=== PATIENT | male | born 1955 | race Two or more races ===

== ENCOUNTER 2025-06-02 15:59 | Inpatient (IN) | payer MEDICARE, OTHER ==
[~2025-06-02] VITALS: Ht 167.6 cm; Wt 69.9 kg
[~2025-06-02 15:59] MED LIST: AMOX1TAB16 PO; CAPE500T15 PO; SULF1TAB48 PO
[2025-06-02 16:33] LABS: PLATELET COUNT (AUTO) 297 K/uL (150-450); RED BLOOD CELL COUNT(AUTO) 3.66 MIL/uL (4.5-6.0); RED CELL DISTRIBUTION WIDTH 16.8 % (11.5-15.0); WHITE BLOOD COUNT (AUTO) 7.7 K/uL (4.3-11.0)
[2025-06-02] MEDS ORDERED: LATA7.5D EACHEYE (17:00)
[2025-06-02] MEDS ORDERED: NETA2.5D RIGHTEYE (17:00)
[2025-06-02] MEDS ORDERED: SENN-261 PO (17:00)
[2025-06-02] MEDS ORDERED: VALP250C3 PO (17:00)
[2025-06-02] MEDS ORDERED: TAMS-12 PO (17:00)
[2025-06-02] MEDS ORDERED: OLAN10TA3 PO (17:00)
[2025-06-02] MEDS ORDERED: LACT1CAP69 PO (17:00)
[2025-06-02] MEDS ORDERED: MULT-213 PO (17:00)
[2025-06-02] MEDS ORDERED: POLY119P3 PO (17:00)
[2025-06-02] MEDS ORDERED: FLUT1BLS11 IH (17:00)
[2025-06-02] MEDS ORDERED: BISA10SU11 RC (17:00)
[2025-06-02] MEDS ORDERED: MAGN400O6 PO (17:00)
[2025-06-02] MEDS ORDERED: NA P133E RC (17:00)
[2025-06-02] MEDS ORDERED: PANT40TA49 PO (17:00)
[2025-06-02] MEDS ORDERED: CLON1TAB12 PO (17:00)
[2025-06-02] MEDS ORDERED: BRIM5DRO11 EACHEYE (17:00)
[2025-06-02] MEDS ORDERED: ALBU18HF2 IH (17:00)
[2025-06-02 17:01] LABS: CALCIUM, SERUM 9.0 mg/dL (8.5-10.1); CREATININE 0.8 mg/dL (0.6-1.3); SODIUM SERUM 135 mmol/L (136-145); UREA NITROGEN, BLOOD 15 mg/dL (7-18)
[2025-06-02 17:06] LABS: ALCOHOL, BLOOD < 3 mg/dL (0-10); ASPARTATE AMINOTRANSFERASE 21 U/L (15-37); TOTAL PROTEIN, SERUM 8.0 g/dL (6.4-8.2)
[2025-06-02] MEDS ORDERED: OLANZAPINE 10 MG VIAL IM ONE (17:18)
[2025-06-02] MEDS: OLANZAPINE 10 MG VIAL IM ONE (17:25)
[2025-06-02 18:01] LABS: APPEARANCE,URINE CLEAR (CLEAR); BLOOD, URINE NEGATIVE Ery/uL (NEGATIVE); LEUKOCYTE ESTERASE ,URINE 1+ (NEGATIVE); NITRITE, URINE NEGATIVE (NEGATIVE); UGLUCOSE NEGATIVE (NEGATIVE)
[2025-06-02 18:21] LABS: AMPHETAMINE, URINE NEGATIVE (NEGATIVE); BARBITURATE, URINE NEGATIVE (NEGATIVE); CANNABINOID, URINE NEGATIVE (NEGATIVE); COCCAINE, URINE NEGATIVE (NEGATIVE); OPIATE, URINE NEGATIVE (NEGATIVE)
[2025-06-02 18:24] LABS: ADD URINE CULTURE YES; SQUAMOUS EPITHELIAL CELL,UR 0-2 /HPF (None Seen)
[2025-06-02 18:51] LABS: BAND % (MANUAL) 3 % (0.0-5.0); EOSINOPHILS % (MANUAL) 5 % (0-4); LYMPHOCYTES % (MANUAL) 33 % (16-48); MONOCYTES % (MANUAL) 6 % (0-11.0); NEUTROPHILS % (MANUAL) 53 (42-76); PLATELET ESTIMATE ADEQUATE
[2025-06-02 19:12] LABS: BENZODIAZEPINE, URINE NEGATIVE (NEGATIVE)
[2025-06-02] MEDS ORDERED: ONDANSETRON HCL/PF 4 MG/2 ML VIAL IVP PRN (19:30)
[2025-06-02] MEDS ORDERED: MAGNESIUM HYDROXIDE 30 ML UDC PO PRN (19:30)
[2025-06-02] MEDS ORDERED: ACETAMINOPHEN 325 MG TABLET PO PRN (19:30)
[2025-06-02] MEDS ORDERED: MAG HYDROX/AL HYDROX/SIMETH 30 ML UDC PO PRN (19:30)
[2025-06-02] MEDS ORDERED: DEXTROSE 50%-WATER 50 ML DISP.SYRIN IV PRN (20:00)
[2025-06-02] MEDS ORDERED: CEFTRIAXONE 1GM BAG (ER ONLY) 50 ML IV ONE (20:15)
[2025-06-02] MEDS: CEFTRIAXONE 1GM BAG (ER ONLY) 1 GM/50 ML PIGGYBACK IV ONE (20:18)
[2025-06-02] MEDS ORDERED: CAPECITABINE 500 MG TABLET PO SCH (20:30)
[2025-06-02] MEDS ORDERED: ALBUTEROL FS 2.5 MG/0.5 ML VIAL.NEB NEB PRN (21:00)
[2025-06-02 21:15] VITALS: BP 143/66; TEMP 97.7; O2SAT 96
[2025-06-02] MEDS: IV NS 0.9% 1,000 ML IV SCH (21:37)
[2025-06-02] MEDS: LATANOPROST EYE DROP 0.005% 2.5 ML BOTTLE EACHEYE SCH (22:00)
[2025-06-02] MEDS: NITROFURANTOIN/MONOHYDRATE MACROCRYSTALS 100 MG CAPSULE PO SCH (22:09)
[2025-06-02] MEDS: SENNOSIDES 8.6 MG TABLET PO SCH (22:10)
[2025-06-02] MEDS: AMOX/CLAVULANATE 875 MG TABLET PO SCH (22:10)
[2025-06-02] MEDS: SULFAMETH/TRIMETH 800/160 MG 1 UDTAB TABLET PO SCH (22:10)
[2025-06-02] MEDS: TAMSULOSIN 0.4 MG CAP.SR.24H PO SCH (22:18)
[2025-06-02] MEDS: VALPROIC ACID 250 MG/5 ML UDC PO SCH (22:18)
[2025-06-02] MEDS: INSULIN REGULAR, HUMAN 100 UNIT/ML 3 ML VIAL SQ PRN (22:51)
[2025-06-02] MEDS: BLOOD SUGAR DIAGNOSTIC 1 EACH STRIP IN SCH (22:51)
[2025-06-03 06:39] LABS: PLATELET COUNT (AUTO) 306 K/uL (150-450); RED BLOOD CELL COUNT(AUTO) 3.69 MIL/uL (4.5-6.0); RED CELL DISTRIBUTION WIDTH 16.9 % (11.5-15.0); WHITE BLOOD COUNT (AUTO) 7.0 K/uL (4.3-11.0)
[2025-06-03 06:48] LABS: CALCIUM, SERUM 9.3 mg/dL (8.5-10.1); CREATININE 0.7 mg/dL (0.6-1.3); PHOSPHORUS 4.3 mg/dL (2.5-4.9); SODIUM SERUM 134.0 mmol/L (136-145); UREA NITROGEN, BLOOD 15.0 mg/dL (7-18)
[2025-06-03 06:58] LABS: IRON, SERUM 67.0 ug/dl (50-175); SERUM AMMONIA 54.0 umol/L (11-32)
[2025-06-03] MEDS: BRIMONIDINE TARTRATE OPHT SOLN 5 ML BOTTLE EACHEYE SCH (08:38)
[2025-06-03] MEDS: FLUTICASONE/VILANTEROL 1 EACH BLST.W.DEV IH SCH (08:38)
[2025-06-03] MEDS: OLANZAPINE 10 MG TABLET PO SCH (08:41)
[2025-06-03] MEDS: LACTOBACILLUS RHAMNOSUS GG 1 EACH CAP.SPRINK PO SCH (08:42)
[2025-06-03] MEDS: MULTIVIT W/MINERALS 1 TAB TABLET PO SCH (08:42)
[2025-06-03] MEDS: PANTOPRAZOLE 40 MG TABLET.DR PO SCH (08:42)
[2025-06-03] MEDS: ENOXAPARIN SODIUM 40 MG/0.4 ML DISP.SYRIN SQ SCH (08:43)
[2025-06-04] MEDS: LACTULOSE 10 G/15 ML UDC (PYXIS) PO PRN (00:34)
[2025-06-04] MEDS: IV NS 0.9% 1,000 ML IV PRN (01:21)
[2025-06-04] MEDS: Z GUARD REMEDY 4 OZ OINT TP PRN (09:23)
[2025-06-05] VITALS: BP 103/60; TEMP 97.9; O2SAT 97
[2025-06-05 07:15] LABS: PLATELET COUNT (AUTO) 319 K/uL (150-450); RED BLOOD CELL COUNT(AUTO) 3.80 MIL/uL (4.5-6.0); RED CELL DISTRIBUTION WIDTH 16.8 % (11.5-15.0); WHITE BLOOD COUNT (AUTO) 6.9 K/uL (4.3-11.0)
[2025-06-05 07:30] VITALS: BP 116/67; TEMP 98.1; O2SAT 96
[2025-06-05 07:39] LABS: SERUM AMMONIA 44 umol/L (11-32)
[2025-06-05 07:43] LABS: CALCIUM, SERUM 9.2 mg/dL (8.5-10.1); CREATININE 0.7 mg/dL (0.6-1.3); SODIUM SERUM 137.0 mmol/L (136-145); UREA NITROGEN, BLOOD 17.0 mg/dL (7-18)
[2025-06-05 08:09] LABS: EOSINOPHILS % (MANUAL) 4 % (0-4); LYMPHOCYTES % (MANUAL) 30 % (16-48); MONOCYTES % (MANUAL) 5 % (0-11.0); NEUTROPHILS % (MANUAL) 61 (42-76)
[2025-06-05 08:12] LABS: PLATELET ESTIMATE ADEQUATE
[2025-06-05 16:00] VITALS: BP 127/71; TEMP 97.3; O2SAT 99
[2025-06-05 20:00] VITALS: BP 109/64; TEMP 98.1; O2SAT 99
[2025-06-06 07:10] LABS: CALCIUM, SERUM 9.3 mg/dL (8.5-10.1); CREATININE 0.9 mg/dL (0.6-1.3); SODIUM SERUM 136.0 mmol/L (136-145); UREA NITROGEN, BLOOD 16.0 mg/dL (7-18)
[2025-06-06 07:30] VITALS: BP 105/61; TEMP 97.5; O2SAT 99
[2025-06-06] MEDS: SODIUM POLYSTYRENE SULFONATE 15 G/60 ML BOTTLE PO ONE (09:55)
[2025-06-06 16:00] VITALS: BP 112/68; TEMP 97.1; O2SAT 97
[2025-06-07 08:00] VITALS: BP 113/69; TEMP 98.4; O2SAT 95
[2025-06-07 16:00] VITALS: BP 123/71; TEMP 97.5; O2SAT 95
[2025-06-07 20:00] VITALS: BP 104/67; TEMP 97.7; O2SAT 97
[2025-06-08 07:30] VITALS: BP 125/67; TEMP 98.1; O2SAT 96
[2025-06-08 20:00] VITALS: BP 118/64; TEMP 97.3; O2SAT 97
[2025-06-09 08:40] VITALS: BP 116/60; TEMP 97.5; O2SAT 100
[2025-06-09 16:04] VITALS: BP 110/60; TEMP 98.1; O2SAT 100
[2025-06-09 20:00] VITALS: BP 101/64; TEMP 98.9; O2SAT 96
[2025-06-10 07:30] VITALS: BP 110/62; TEMP 97.9; O2SAT 96
[2025-06-23] MEDS ORDERED: POLYETHYLENE GLYCOL 3350 17 GM POWD.PACK PO SCH (09:00)
== END 2025-06-10 13:00 | DRG 640 ==
LOC: ER 16:13 → MED 20:07
PROVIDERS: ADMIT Registered Nurse Psychiatric/Mental Health; ATTEND Internal Medicine
DX: E86.0 Dehydration (principal); G93.41 Metabolic encephalopathy; E72.20 Disorder of urea cycle metabolism, unspecified; E44.1 Mild protein-calorie malnutrition; D68.59 Other primary thrombophilia; N39.0 Urinary tract infection, site not specified; K21.9 Gastro-esophageal reflux disease without esophagitis; Z20.822 Contact with and (suspected) exposure to COVID-19; Z85.048 Personal history of other malignant neoplasm of rectum, rectosigmoid junction, and anus; Z93.3 Colostomy status; Z86.19 Personal history of other infectious and parasitic diseases; K76.82 Hepatic encephalopathy; E11.9 Type 2 diabetes mellitus without complications; Z79.4 Long term (current) use of insulin; E78.5 Hyperlipidemia, unspecified; F25.0 Schizoaffective disorder, bipolar type; H40.9 Unspecified glaucoma; K40.90 Unilateral inguinal hernia, without obstruction or gangrene, not specified as recurrent; Z79.51 Long term (current) use of inhaled steroids; E88.09 Other disorders of plasma-protein metabolism, not elsewhere classified; Z79.899 Other long term (current) drug therapy; B96.89 Other specified bacterial agents as the cause of diseases classified elsewhere; I10 Essential (primary) hypertension; D64.9 Anemia, unspecified; N40.0 Benign prostatic hyperplasia without lower urinary tract symptoms; Z74.01 Bed confinement status; Z86.59 Personal history of other mental and behavioral disorders; F29 Unspecified psychosis not due to a substance or known physiological condition; F06.8 Other specified mental disorders due to known physiological condition
CPT/HCPCS: 36415; 80048-TC; 80076-TC; 80164-TC; 81001; 82140-TC; 82962-TC; 83540-TC; 83690-TC; 83735-TC; 84100-TC; 85025-TC; 85027-TC; 87081-TC; 87086-TC; A4223; G0378; G0480; J0696; J1650; J1815; J3490; J7030; J7070